=== PATIENT | female | born 1975 ===

== ENCOUNTER 2016-10-12 18:38 | Emergency (ER) | payer OTHER, MEDICAID ==
[2016-10-12 19:00] VITALS: BMI 28.3
[2016-10-12 19:01] VITALS: RESP 20; O2SAT 99
[2016-10-12] MEDS ORDERED: Naproxen 550 mg Tab PO STA (19:11)
[2016-10-12] MEDS ORDERED: Naproxen 550 mg Tab PO ONE (19:44)
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
[2016-10-12 20:13] VITALS: BP 115/77; PULSE 61; TEMP 97.6
--- NOTE | 2016-10-13 07:38 | RAD ---
PROCEDURE: Cervical Spine Radiographs. HISTORY: Pain. COMPARISON: None. FINDINGS: BONES: There is over reversal of cervical curvature without fracture identified. No spondylolisthesis. The odontoid process appears intact. There is no suspicious lytic or blastic change. Posterior elements appear unremarkable diffusely. DISC SPACES: Normal. SOFT TISSUES: Normal. No prevertebral soft tissue swelling. OTHER FINDINGS: None. IMPRESSION: Reversal of upper cervical curvature without fracture or spondylolisthesis identified.
--- NOTE | 2016-10-13 07:45 | RAD ---
PROCEDURE: Radiographs of the Lumbar Spine. HISTORY: pain COMPARISON: No prior. FINDINGS: BONES: Normal alignment. No listhesis. No fracture. DISC SPACES: Unremarkable. OTHER FINDINGS: None. IMPRESSION: Unremarkable radiographs of the lumbar spine.
== END 2016-10-12 20:12 | disposition home or self-care (01) ==
LOC: C.ER 18:38
DX: S16.1XXA Strain of muscle, fascia and tendon at neck level, initial encounter (principal); S39.012A Strain of muscle, fascia and tendon of lower back, initial encounter; V49.9XXA Car occupant (driver) (passenger) injured in unspecified traffic accident, initial encounter; Y92.410 Unspecified street and highway as the place of occurrence of the external cause